=== PATIENT | male | born 1960 | race Caucasian/White ===

== ENCOUNTER → 2016-11-22 12:33 | Outpatient (CLI) | payer BC ==
[2011-03-10 12:07] VITALS: BMI 25.8
== END | disposition home or self-care (01) ==
LOC: D.MRI 12:33
DX: M48.06 Spinal stenosis, lumbar region (principal); K40.90 Unilateral inguinal hernia, without obstruction or gangrene, not specified as recurrent

== ENCOUNTER → 2016-12-14 09:26 | Outpatient (CLI) | payer BC ==
[2011-03-10 12:07] VITALS: BMI 25.8
== END | disposition home or self-care (01) ==
LOC: D.NM 09:26
DX: M25.551 Pain in right hip (principal)

== ENCOUNTER 2016-12-27 10:34 | Day surgery (SDC) | payer BC ==
[~2016-12-27 10:34] MED LIST: ASPIRIN325 MG PO; FENOFIBRATE160 MG PO; OMEPRAZOLE20 M1 PO
[2016-12-27 11:44] VITALS: BP 126/78; BMI 27.8
--- NOTE | 2016-12-27 15:55 | NUR ---
PATIENT AMBULATES AROUND ROOM, DENIES UNSTEADINESS OR DIZZINESS, AMBULATES WITHOUT ASSISTANCE. PATIENT URINATES IN TOILET, LEFT HAND PIV DC'D WITH TIP INTACT. PATIENT DRESSING IN PERSONAL CLOTHING
--- NOTE | 2016-12-27 16:08 | NUR ---
DISCHARGE INSTRUCTIONS REVIEWED WITH PATIENT AND SPOUSE. PATIENT DISCHARGED HOME VIA WHEELCHAIR TO PRIVATE VEHICLE WITH SPOUSE
--- NOTE | 2016-12-29 18:56 | OP ---
PATIENT NAME: JUNIOR MCNEAL MEDICAL RECORD: [id number] :64 LOCATION:D.OPS ADMISSION DATE: SURGEON: ABRAN KELSEY MD DATE OF OPERATION: 12/27/2016 Orthopedic Surgery Operative Note PREOPERATIVE DIAGNOSIS: Iliopectineal bursitis of the right hip, status post total hip arthroplasty. POSTOPERATIVE DIAGNOSIS: Iliopectineal bursitis of the right hip, status post total hip arthroplasty. PROCEDURE: Iliopectineal bursa injection under fluoroscopy with TIVA anesthesia. SURGEON: Abran Kelsey MD. ANESTHESIA: TIVA. INTRAOPERATIVE COMPLICATIONS: None. OPERATIVE SUMMARY IN DETAIL: The patient was brought to the operating room and given TIVA anesthesia after he was placed on the radiolucent bed. The right hip was prepped and draped in routine sterile fashion. An 18-gauge needle was guided into the iliopsoas bursa area. Small amount of Isovue was utilized to be sure of the appropriate positioning and then 80 mg of Depo-Medrol and 7 cc of 0.25% Marcaine with epinephrine were injected into the patient's iliopsoas bursa. The patient was then awakened and taken back to outpatient in stable condition. TRANSINT:[id number] Voice Confirmation ID: [id number] DOCUMENT ID: [id number] LAURE SALEH, ABRAN PLASCENCIA at 1856 CC: [id number] DICTATION DATE: 12/27/16 1647 SOFTWARE SECURITY ARCHITECT: 12/27/16 2130 DEP DCC 12/27/16 [id number] [place] [address]
== END 2016-12-27 16:08 | disposition home or self-care (01) ==
LOC: D.OPS 10:34 → D.PAN 13:15 → D.OPS 13:15
DX: M70.71 Other bursitis of hip, right hip (principal); Z96.641 Presence of right artificial hip joint; K21.9 Gastro-esophageal reflux disease without esophagitis; M19.90 Unspecified osteoarthritis, unspecified site; Z01.812 Encounter for preprocedural laboratory examination